=== PATIENT | male | born 1960 ===

== ENCOUNTER 2019-01-08 12:59 | Emergency (ER) | payer OTHER ==
[2019-01-08 13:00] VITALS: BMI 41.0
--- NOTE | 2019-01-08 13:34 | C.PDOC ---
History Of Present Illness 58 year old male with a PMHx of Atrial Fibrillation, Hypertension, and Diabetes (not on any meds for the last 2 years), presents to the ED with complaints of SOB, cough, runny nose, and nasal congestion onset 4 days ago. Last night he developed fever and increased SOB, especially with any exertion. Otherwise patient denies any chest pain, leg swelling, weakness, numbness, nausea, vomiting, or other complaints. Patient denies taking any medications for symptom relief. He went to [facility] today and was referred to the ED. Patient believes they gave him ibuprofen prior to arrival. Time Seen by Provider: 01/08/19 13:04 Chief Complaint (Nursing): Fever History Per: Patient History/Exam Limitations: no limitations Onset/Duration Of Symptoms: Days (4) Current Symptoms Are (Timing): Worse Associated Symptoms: Fever, Cough, Nasal Congestion Past Medical History Reviewed: Historical Data, Nursing Documentation, Vital Signs Vital Signs: Last Vital Signs Temp 100.5 F H 01/08/19 13:10 Pulse 106 H 01/08/19 13:10 Resp 20 01/08/19 13:10 BP 165/97 H 01/08/19 13:10 Pulse Ox 96 01/08/19 13:10 - Medical History PMH: Atrial Fibrillation, Back Problems, Diabetes, HTN, Hypothyroidism Denies: Chronic Kidney Disease Other Surgeries: Finger surgery, Nasal septum surgery - [facility] Procedures INTRODUCTION OF SERUM/TOX/VACCINE INTO MUSCLE, PERC APPROACH (04/09/16) Family History: States: Diabetes, Hypertension - Social History Hx Tobacco Use: Yes Hx Alcohol Use: Yes (social) Hx Substance Use: No Review Of Systems Constitutional: Positive for: Fever Eyes: Negative for: Vision Change ENT: Positive for: Nose Discharge, Nose Congestion Cardiovascular: Negative for: Chest Pain Respiratory: Positive for: Cough, Shortness of Breath. Negative for: Hemoptysis Gastrointestinal: Negative for: Nausea, Vomiting, Diarrhea Musculoskeletal: Negative for: Back Pain Skin: Negative for: Rash Neurological: Negative for: Weakness, Numbness, Dizziness Physical Exam - Physical Exam Appears: No Acute Distress, Other (Febrile) Skin: Normal Color, Warm, Diaphoretic Head: Atraumatic, Normacephalic Eye(s): bilateral: Normal Inspection, PERRL, EOMI Nose: Normal Oral Mucosa: Moist Neck: Normal ROM Chest: Symmetrical Cardiovascular: Rhythm Irregular (Irregularly Irregular), No JVD, Other (Tachycardic) Respiratory: Decreased Breath Sounds (at the bases of lungs), No Rales, No Rhonchi, No Wheezing Gastrointestinal/Abdominal: Soft, No Tenderness, No Distention Back: Normal Inspection, No CVA Tenderness Extremity: Normal ROM, No Calf Tenderness, No Deformity, Swelling (trace lower leg edema bilaterally) Pulses: Left Dorsalis Pedis: Normal, Right Dorsalis Pedis: Normal Neurological/Psych: Oriented x3, Normal Speech, Other (No sensorimotor deficit) Gait: Steady ED Course And Treatment - Laboratory Results Result Diagrams: 01/08/19 13:48 01/08/19 13:48 ECG: Interpreted By Me, Viewed By Me ECG Rhythm: Atrial Fibrillation (with RVR) Interpretation Of ECG: T wave inversions in the lateral leads, similar to previous EKG 2015 Rate From EC O2 Sat by Pulse Oximetry: 96 (RA) Pulse Ox Interpretation: Normal Medical Decision Making Medical Decision Making: Initial EKG shows Atrial Fibrillation with RVR Impression: Febrile illness, Atrial fibrillation with RVR Differential diagnosis includes but is not limited to: pneumonia, influenza, CHF, sepsis Plan: - EKG - VBG - CMP - Troponin I - CBC - PTT/PT - Chest x-ray - Blood cultures - Flu swab - 10 mg IV Cardizem - 975 mg PO Tylenol - Reassess Labs demonstrate +flu, otherwise no clinically significant abnormalities CXR with no acute findings. 230p Pt feeling better and HR normalized. 300p Repeat EKG shows A Fib, rate controlled otherwise unchanged. DW pt findings. Disposition Counseled Patient/Family Regarding: Studies Performed, Diagnosis, Need For Followup, Rx Given - Disposition Referrals: [facility] [Provider Group] (FOLLOW UP AT THE CLINIC BY THE END OF THE WEEK) Disposition: HOME/ ROUTINE Disposition Time: 15:06 Condition: IMPROVED Additional Instructions: TAKE MEDICATIONS PRESCRIBED FOLLOWUP AT CLINIC BY THE END OF THE WEEK RETURN TO ER FOR: DIFFICULTY BREATHING, CHEST PAIN, FAINTING OR NEAR FAINTING, OR ANY OTHER WORRISOME SYMPTOMS Prescriptions: Acetaminophen [Tylenol Extra Strength] 1,000 mg PO Q6 PRN #100 tablet PRN Reason: FEVER OR PAIN Aspirin [Aspirin Chewable] 81 mg PO DAILY #100 chew Ibuprofen [Motrin Tab] 600 mg PO Q8 PRN #60 tab PRN Reason: Fever >100.4 F Levothyroxine [Synthroid] 50 mcg PO DAILY #30 tab metFORMIN [glucOPHAGE] 1,000 mg PO BID #30 tab Metoprolol Tartrate [Lopressor] 50 mg PO BID #60 tab Oseltamivir Cap [Tamiflu] 75 mg PO BID #10 cap Instructions: Atrial Fibrillation (DC), Flu, Adult (DC), Hyperglycemia, Adult (DC) Forms: Work Excuse - Clinical Impression Clinical Impression: Atrial fibrillation, Influenza - Scribe Statement The provider has reviewed the documentation as recorded by the Ethan Wolf Provider Attestation: All medical record entries made by the Ethan were at my direction and personally dictated by me. I have reviewed the chart and agree that the record accurately reflects my personal performance of the history, physical exam, medical decision making, and the department course for this patient. I have also personally directed, reviewed, and agree with the discharge instructions and disposition.
[2019-01-08 13:52] LABS: BASO # 0.1 K/uL (0.0-0.2); BASO % 0.8 % (0.0-2.0); EOS # 0.1 K/uL (0.0-0.7); EOS % 1.6 % (0.0-4.0); HEMOGLOBIN 14.7 g/dL (12.0-18.0); LYMPH # 1.1 K/uL (1.0-4.3); LYMPH % 14.2 % (20.0-40.0); MEAN CELL VOLUME 88.6 fL (80.0-94.0); MEAN CORPUSCULAR HEMOGLOBIN 29.8 pg (27.0-31.0); MEAN CORPUSCULAR HGB CONC 33.6 g/dL (33.0-37.0); MEAN PLATELET VOLUME 7.9 fL (7.2-11.7); MONO % 12.9 % (0.0-10.0); NEUT # 5.3 K/uL (1.8-7.0); NEUT % 70.5 % (50.0-75.0); NRBC % 0.1 % (0.0-2.0); RBC 4.94 Mil/uL (4.40-5.90); RED CELL DISTRIBUTION WIDTH 13.5 % (11.5-14.5); WHITE BLOOD COUNT 7.5 K/uL (4.8-10.8)
[2019-01-08 13:54] LABS: VENOUS BLOOD GAS BASE EXCESS 0.7 mmol/L (0.0-2.0); VENOUS BLOOD GAS PCO2 40 mmHg (40-60); VENOUS BLOOD GAS PO2 42 mm/Hg (30-55); VENOUS BLOOD PH 7.41 (7.32-7.43)
[2019-01-08 14:00] LABS: INR 1.2; PROTHROMBIN TIME 12.6 SECONDS (9.7-12.2)
[2019-01-08 14:07] LABS: ALB/GLOB RATIO 1.4 (1.0-2.1); ALBUMIN 4.4 g/dL (3.5-5.0); ALT/SGPT 23 U/L (21-72); AST/SGOT 34 U/L (17-59); BLOOD UREA NITROGEN 14 mg/dL (9-20); CALCIUM 8.8 mg/dl (8.6-10.4); GFR NON-AFRICAN AMERICAN > 60
--- NOTE | 2019-01-08 14:44 | RAD ---
Date of service: 01/08/2019 HISTORY: SOB COMPARISON: No prior. TECHNIQUE: Chest PA and lateral FINDINGS: LUNGS: No air bronchograms noted. Vague increased opacity over left lateral lung base apparent preservation of the left hemidiaphragm- PLEURA: No significant pleural effusion identified. No pneumothorax apparent. CARDIOVASCULAR: No aortic atherosclerotic calcification present. Mild cardiomegaly probable top-normal pulmonary vascularity. OSSEOUS STRUCTURES: Thoracic spondylosis. VISUALIZED UPPER ABDOMEN: Normal. OTHER FINDINGS: None. IMPRESSION: Mild cardiomegaly. Probable summation of soft tissues over left lateral lung base.
[2019-01-08 14:53] VITALS: BP 124/85; PULSE 99; RESP 16; TEMP 98.8
[2019-01-08 15:06] VITALS: O2SAT 96
--- NOTE | 2019-01-10 22:05 | CARD ---
APPROVED REPORT Date of service: 01/08/2019 EKG Measurement Heart [id number] <Conclusion> Atrial fibrillation Septal infarct, age undetermined ST & T wave abnormality, consider lateral ischemia Abnormal ECG
--- NOTE | 2019-01-10 22:06 | CARD ---
APPROVED REPORT Date of service: 01/08/2019 EKG Measurement Heart [id number] <Conclusion> Atrial fibrillation with rapid ventricular response ST & T wave abnormality, consider lateral ischemia Abnormal ECG
== END 2019-01-08 15:42 | disposition home or self-care (01) ==
LOC: C.ER 12:59
DX: I48.91 Unspecified atrial fibrillation (principal); J11.1 Influenza due to unidentified influenza virus with other respiratory manifestations; I10 Essential (primary) hypertension; E11.9 Type 2 diabetes mellitus without complications; E03.9 Hypothyroidism, unspecified; Z72.0 Tobacco use